=== PATIENT | male | born 2000 | race Caucasian/White ===

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

== ENCOUNTER 2023-10-15 15:19 | Emergency (ER) | payer SELFPAY ==
[~2023-10-15] VITALS: Ht 182.9 cm; Wt 104.0 kg
[~2023-10-15 15:19] MED LIST changes: +AMOXICILLIN500 MG PO; +CLARITIN10 M1 PO
[2023-10-15 15:38] VITALS: BP 118/71
[2023-10-15] MEDS ORDERED: CEPHALEXIN500 M1 PO (15:39)
[2023-10-15] MEDS ORDERED: LIDOcaine HCl 1% (Local Anesth.) 20 ML VIAL IM STA (15:40)
[2023-10-15] MEDS ORDERED: cefTRIAXone SODIUM 1 GM/VIAL SDV IM ONE (15:40)
[2023-10-15] MEDS ORDERED: Diph, Acellular Pertussis, Tet 0.5 ML/VIAL (Tdap) SDV IM ONE (15:40)
[2023-10-15 15:46] VITALS: BP 121/67
[2023-10-15 15:52] VITALS: BP 121/67
== END 2023-10-15 16:00 | disposition home or self-care (01) | DRG 605 ==
LOC: ED 15:19
DX: S11.94XA Puncture wound with foreign body of unspecified part of neck, initial encounter (principal); W26.8XXA Contact with other sharp object(s), not elsewhere classified, initial encounter; Y93.89 Activity, other specified

== ENCOUNTER 2024-11-20 07:39 | Emergency (ER) | payer OTHER ==
[~2024-11-20] VITALS: Ht 182.9 cm; Wt 127.0 kg
[~2024-11-20 07:39] MED LIST changes: +CEPHALEXIN500 M1 PO
[2024-11-20 07:42] VITALS: BP 134/88
[2024-11-20 08:00] VITALS: BP 135/80
[2024-11-20 08:05] LABS: BASO% 0.2 % (0-3); EOS% 2.5 % (0-8); HEMOGLOBIN 14.9 g/dl (14.0-18.0); IMMATURE GRANULOCYTES 0.2 % (0.0-5.0); LYMPH% 32.4 % (15-41); MEAN CELL VOLUME 82.2 fL CALC (80.0-100.0); MEAN CORPUSCULAR HGB 29.2 pG CALC (26.0-32.0); MEAN CORPUSCULAR HGB CONC 35.5 g/dL CAL (32.0-36.0); MONO% 8.2 % (2-13); NEUT# 2.95 thou/uL (1.82-7.42); NEUT% 56.5 % (42-76); RED BLOOD COUNT 5.11 mill/uL (4.70-6.10); RED CELL DISTRI WIDTH 12.2 % (11.5-15.5)
[2024-11-20 08:15] LABS: ALBUMIN 4.5 g/dL (3.2-5.0); CREATININE 0.8 mg/dL (0.7-1.3); TOTAL PROTEIN 7.4 g/dL (6.3-8.2)
[2024-11-20 08:17] LABS: BILIRUBIN, TOTAL 0.8 mg/dL (0.2-1.3)
[2024-11-20 08:56] VITALS: BP 140/91
[2024-11-20 09:01] VITALS: BP 127/91
[2024-11-20] MEDS ORDERED: KETOROLAC TROMETHAMINE 30 MG/ML SDV IV ONE (09:30)
[2024-11-20 09:31] VITALS: BP 146/86
[2024-11-20 09:46] VITALS: BP 146/86
== END 2024-11-20 09:56 | disposition home or self-care (01) | DRG 556 ==
LOC: ED 07:39
PROVIDERS: Family Medicine
DX: M25.532 Pain in left wrist (principal); M25.531 Pain in right wrist; M54.2 Cervicalgia; M54.6 Pain in thoracic spine; K40.90 Unilateral inguinal hernia, without obstruction or gangrene, not specified as recurrent; V49.40XA Driver injured in collision with unspecified motor vehicles in traffic accident, initial encounter